=== PATIENT | male | born 1990 | race Caucasian/White ===

== ENCOUNTER 2017-12-21 06:37 | Observation (INO) ==
[2017-12-21] MEDS ORDERED: *HR* LORazepam 2 MG/ML VIAL IM PRN (07:32)
[2017-12-21] MEDS ORDERED: hydrOXYzine pamoate 25 MG CAPSULE PO PRN (07:32)
[2017-12-21] MEDS ORDERED: Mag Hydrox/Al Hydrox/Simeth 30 ML UDC PO PRN (07:32)
[2017-12-21] MEDS ORDERED: MOM Conc 10 ML UD.LIQ PO PRN (07:32)
[2017-12-21] MEDS ORDERED: Haloperidol Lactate 5 MG/ML VIAL IM PRN (07:32)
[2017-12-21] MEDS ORDERED: Acetaminophen 325 MG TABLET PO PRN (07:32)
[2017-12-21] MEDS ORDERED: traZODone 50 MG TABLET PO PRN (07:32)
[2017-12-21] MEDS ORDERED: *HR* LORazepam 1 MG TABLET PO PRN (07:32)
[2017-12-21] MEDS ORDERED: Nicotine 7 MG PATCH.TD24 TD SCH (09:00)
--- NOTE | 2017-12-21 12:10 | Discharge Summary ---
Date of Encounter: 12/21/17 Time of Encounter: 11:30 History of Present Illness Chief complaint: Suicidal ideation Admitted From: Hospital to Hospital Transfer ([facility]) History of Present Illness: Mr. Gardner is a 27 year old male admitted directly from [facility] ER for suicidal ideation. Patient had history of depression and substance abuse, opiate and cocaine, recently discharged from rehabilitation. He is homeless and noncompliant with medication or treatment. He was hospitalized in this hospital and discharge in October 01 for the similar episode. UDS was negative. Past Med Surg Social Fam HX - Past Medical History Medical history: no medical history, other - Past Psychiatric History Psychiatric history: Reports: depression, previous psychiatric hospitalization Past psychiatric history details: Discharge from [facility] Family psychiatric history: Unknown Family History of Suicide: Unknown - Past Surgical History Surgical History: appendectomy - Social History Smoking Status: Unknown if ever smoked Smokeless Tobacco Status: Yes Alcohol use: none Drug use: none, cocaine, opiates, methamphetamine, prescription drug abuse, other Medications - Discharge Medications Prescriptions: Buspirone HCl [Buspar] 7.5 mg PO BID #60 tablet Buspirone HCl [Buspar] 7.5 mg PO BID #60 tablet 12/21/17 [Rx] Capsaicin 0.025% [Trixaicin] 1 appl TP TID PRN 12/21/17 [History] Omeprazole [PriLOSEC] 20 mg PO DAILY 12/21/17 [History] Polyethylene Glycol 3350 [MiraLAX] 17 gm PO DAILY 12/21/17 [History] 3 Allergy/AdvReac Type Severity Reaction Status Date / Time No Known Allergies Allergy Verified 12/21/17 07:32 Review of Systems Psychiatric: Reports: suicidal ideation Exam - HEENT Head exam IM: Present: atraumatic Eye exam IM: Present: EOMI, normal appearance, PERRL ENT exam IM: Present: normal exam - Neurological Neurological exam: Present: CN II-XII intact - Respiratory Respiratory exam IM: Present: CTAB - GI/Abdominal GI/Abdominal exam IM: Present: normal bowel sounds, soft. Absent: tenderness - Extremities Extremities exam IM: Present: full ROM - Skin Skin exam IM: Present: dry, warm - Constitutional General appearance: age & developmentally appropriate, well-groomed, well- nourished - Musculoskeletal Gait: normal Station: relaxed Strength & Tone: normal for patient - Psychiatric Patient Orientation: Yes Person, Yes Time, Yes Place Level of alertness: Alert Behavior: calm, cooperative Psychomotor activity: Normal Eye Contact: Maintains Eye Contact Mood Description: Euthymic/stable Affect description: congruent with mood, full range Speech Volume: Normal Speech pattern: normal rate, normal rhythm, normal tone, fluent, spontaneous Language & Vocabulary: consistent with education Thought Process: Linear, Goal Oriented Thought Content: No Suicidal ideation, No Homicidal ideation, No Overt delusions Perceptual Disturbances: No Auditory hallucinations, No Visual hallucinations Attention Span Ability: Capable of Focused Attention Memory Description: Grossly Intact Patient Reliability: Reliable Historian Fund of knowledge: Yes abstraction ability, Yes average, Yes aware of current events Intelligence Estimate: Average Judgment: Limited Insight: Partial Diagnosis - Discharge Diagnosis (1) Suicidal ideation Status: Acute Assessment and Plan - Patient/Caregiver Discharge Instructions Activity: resume usual activities as tolerated Diet: regular diet - Follow up Plan Follow up with: [facility] [Outside] - 12/29/17 10:30 am (The above appointment is with Xuan Maradiaga, counselor at [facility]. Your first appointment will be very thorough and the total appointment time will take between two and three hours. You will be completing paperwork, meeting with a counselor and a nurse, and developing a treatment plan. You will receive follow- up appointments for on-going services , which could include community support, mental health and substance abuse counseling, groups/partial hospitalization programming, medication assisted treatment, and psychiatric medication management. Please bring the following with you to your first visit to the clinic: 1) proof of household income (two consecutive pay stubs, social security award letter, bank statement, statement letter from [facility], child support statement, IRS 1040 or W2 form, or a statement from the person who financially supports you stating they help provide for your basic needs), 2) proof of residency (drivers license, a piece of mail showing your address, a statement from person you live with verifying you live at their address), 3) your social security card, 4) photo ID, and 5) your insurance card (if you have commercial insurance you must call to obtain a prior authorization number before you arrive to your first appointment). If you do not bring these items, you will not be seen.) Edson Paredes, TRISTEN [Physician Winding Lathe Operator] - 01/03/18 4:00 pm (The above appointment is with CASSIDY Leo, at [facility]. This appointment is for primary care. Your needs for medication and/or Vivitrol will be assessed and treated as indicated as well. Please arrive 15 minutes early to complete paperwork. Please bring your insurance card, photo ID and list of current medications to your first appointment. The above appointment(s) reflects first availability. You may contact the office regularly to check for cancellations that may allow you to be seen sooner.) Functional capacity at discharge: independent ambulation Overall status at discharge: Stable Disposition: Home, Self-Care Provider Date of admission: 12/21/17 07:12 Primary care physician: PCP NONE Discharging clinician: [facility] Course Hospital course: Mr. Gardner is a 27 year old male admitted from [facility] for suicidal ideation on observation status. Patient was admitted and evaluated and started on medication. He was encouraged to participate in activities and groups. On discharge patient was medically stable, denied any suicidal ideation, report his concern is been homeless and social work was able to place him and appropriate facility. Also follow-up plans were reviewed with the patient. He is discharged in stable condition. - Time Spent with Patient Total time spent providing and/or coordinating discharge services: Less than 30 minutes Procedures - Procedures Procedures: Medication Management, Crisis Stabilization, Supportive Therapy, Group Therapy, Psychoeducational Therapy Quality - Multiple Antipsychotics Patient discharged on 2 or more antipsychotic medications: No
== END 2017-12-21 18:40 | disposition home or self-care (01) ==
LOC: 1ANU
PROVIDERS: ADMIT Psychiatry & Neurology Psychiatry; ATTEND Psychiatry & Neurology Psychiatry

== ENCOUNTER 2022-04-16 18:24 | Inpatient (IN) ==
[2022-04-16] MEDS ORDERED: *HR* LORazepam 1 MG TABLET PO ONE (19:56)
[2022-04-16] MEDS ORDERED: OLANZapine 10 MG TAB.RAPDIS PO ONE (20:00)
[2022-04-16 21:42] LABS: Influenza A PCR Negative (Negative); Influenza B PCR Negative (Negative); Resp. Syncytial Virus PCR Negative (Negative)
[2022-04-16 21:43] LABS: SARS-CoV-2 by PCR (In House) Negative (Negative)
[2022-04-17] MEDS ORDERED: *HR* LORazepam 1 MG TABLET PO PRN (05:15)
[2022-04-17] MEDS ORDERED: Haloperidol Lactate 5 MG/ML VIAL IM PRN ×2 (05:15→05:34)
[2022-04-17] MEDS ORDERED: *HR* LORazepam 2 MG/ML VIAL IM PRN (05:15)
[2022-04-17] MEDS ORDERED: haloperidoL 5 MG TABLET PO PRN (05:15)
[2022-04-17] MEDS ORDERED: MOM Conc 10 ML UD.LIQ PO PRN (08:13)
[2022-04-17] MEDS ORDERED: Mag Hydrox/Al Hydrox/Simeth 30 ML UDC PO PRN (08:13)
[2022-04-17] MEDS: traZODone 50 MG TABLET PO PRN (21:33)
[2022-04-18] MEDS ORDERED: Nicotine 2 MG GUM BC PRN (19:34)
[2022-04-18 19:54] VITALS: O2SAT 99
[2022-04-18] MEDS: traZODone 50 MG TABLET PO PRN ×2 (20:19→23:53)
[2022-04-18] MEDS: hydrOXYzine pamoate 25 MG CAPSULE PO PRN (20:52)
[2022-04-19] MEDS: hydrOXYzine pamoate 25 MG CAPSULE PO PRN (03:28)
[2022-04-19] MEDS: Acetaminophen 325 MG TABLET PO PRN ×2 (03:28→09:58)
[2022-04-19 08:30] VITALS: BP 123/83; PULSE 68; TEMP 97.1
[2022-04-19] MEDS ORDERED: Ibuprofen 600 MG TABLET PO PRN (11:48)
[2022-04-19] MEDS ORDERED: traZODone 50 MG TABLET PO SCH (21:00)
== END 2022-04-19 12:43 | disposition home or self-care (01) | DRG 751 ==
LOC: EMEROOARM 18:24 → 1ANU 18:24 → EMEROOARM 04-17 05:27 → 1ANU 04-17 05:40
PROVIDERS: ADMIT Psychiatry & Neurology Psychiatry; ATTEND Psychiatry & Neurology Psychiatry